=== PATIENT | male | born 1990 | race Caucasian/White ===

== ENCOUNTER 2021-12-10 10:59 | Emergency (ER) | payer SELFPAY ==
[2021-12-10] MEDS ORDERED: Tetracaine HCl/PF 0.5% 4 ML Bottle EYEBOTH ONE (11:53)
== END 2021-12-10 12:40 | disposition home or self-care (01) ==
LOC: MERGE 10:59 → MW.ED 10:59
DX: H16.002 Unspecified corneal ulcer, left eye (principal); J01.00 Acute maxillary sinusitis, unspecified
CPT/HCPCS: 99283